=== PATIENT | male | born 2005 | race Asian ===

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

== ENCOUNTER 2023-01-19 14:02 | Observation (INO) | payer OTHER ==
[~2023-01-19] VITALS: Ht 182.9 cm; Wt 114.9 kg
[2023-01-19] VITALS (7 sets, daily range): BP systolic 120–141; BP diastolic 71–99; TEMP 98.2–98.6; Ht 182.9 cm; Wt 114.9 kg
[2023-01-19 14:38] LABS: PLATELET COUNT 441 K/uL (142-355)
[2023-01-19 14:39] LABS: POTASSIUM 3.4 mmol/L (3.6-5.2)
[2023-01-19 20:08] LABS: PLATELET COUNT 338 K/uL (142-355)
[2023-01-20 04:00] VITALS: BP 138/65; TEMP 98.3
[2023-01-20 04:54] LABS: PLATELET COUNT 318 K/uL (142-355)
[2023-01-20 05:15] LABS: POTASSIUM 3.8 mmol/L (3.6-5.2)
[2023-01-20 07:57] VITALS: BP 127/75; TEMP 98.3
== END 2023-01-20 12:18 | disposition home or self-care (01) ==
LOC: ED 14:02 → MED/SURG 15:13
PROVIDERS: ADMIT Family Medicine; ATTEND Internal Medicine
DX: R25.2 Cramp and spasm (principal); R00.0 Tachycardia, unspecified; D72.828 Other elevated white blood cell count; N17.8 Other acute kidney failure; X30.XXXA Exposure to excessive natural heat, initial encounter; Y92.89 Other specified places as the place of occurrence of the external cause; E86.0 Dehydration
CPT/HCPCS: 80053; 80307; 81002; 82550; 85027; 87651; 96361; 96365; 99221; 99284; G0378; J0132